=== PATIENT | male | born 1960 | race Caucasian/White ===

== ENCOUNTER 2023-08-09 07:23 | Day surgery (SDC) | payer OTHER, SELFPAY ==
[2023-08-02 12:53] VITALS: BMI 33.2
[2023-08-09] VITALS (15 sets, daily range): BP systolic 96–153; BP diastolic 60–95; PULSE 72–96; RESP 8–17; TEMP 36.5–37.1; O2SAT 91–99; BMI 33.2
--- NOTE | 2023-08-09 06:00 | DI.RAD.S_ITS ---
PROCEDURE: XR KNEE LT 1TO2V INDICATIONS: TKA TECHNIQUE: 2 view(s) of the knee acquired. COMPARISON: [facility], , KNEE 3V RIGHT, 05/31/2016, 12:17. FINDINGS: Bones: Patient is status post knee joint arthroplasty. Hardware components are in expected positions. Visualized bony structures are intact. Soft tissues: Overlying postoperative changes are noted. IMPRESSION: Expected post-operative appearance of a knee arthroplasty. Approved by: Polina Saxena M.D.,Ph.D. on 08/09/2023 at 12:13
[2023-08-09] MEDS: LACTATED RINGERS 1,000 ML 42 ML IV ×2 (08:01→10:03)
[2023-08-09] MEDS: CELECOXIB 200 MG CAPSULE 400 MG PO (08:02)
[2023-08-09] MEDS: ACETAMINOPHEN 325 MG TABLET 975 MG PO (08:03)
--- NOTE | 2023-08-09 08:09 | PM.PREOP ---
Pre-operative Note Interval Note History & Physical reviewed/Exam performed by Physician: Yes Changes to H&P: No
[2023-08-09] MEDS: CEFAZOLIN 2 GM/100 ML PREMIX 100 ML IV (09:11)
[2023-08-09] MEDS: TRANEXAMIC ACID 1,000 MG VIAL 1000 MG INJ ×2 (09:11→11:13)
--- NOTE | 2023-08-09 09:36 | SUR.OPER ---
Supine on padded OR bed. Pillow under head, arms secured on padded armboards <90 degree abduction. Safety belt across torso. Non-operative leg secured with tape over blanket over lower leg. Operative leg secured in DeMayo/John/Nathe positioner. Foam padded brace at thigh of operative leg.
[2023-08-09] MEDS: BUPIVACAINE 0.25% (PF) 60 ML, EPINEPHrine 0.3 MG INJ (09:55)
[2023-08-09] MEDS: BUPIVACAINE LIPOSOME 266 MG/20 ML VIAL INJ (09:59)
--- NOTE | 2023-08-09 11:38 | PM.OP.1 ---
Operative Date/Time/Diagnoses Date of procedure: 08/09/23 Time of procedure: 11:38 Pre-op diagnosis: Knee arthritis left M17.12 Post-op diagnosis: same Procedure & Clinicians Procedure: Total knee replacement left CPT code 89668 Robotic total knee replacement S2 [id number] Computer-assisted navigation CPT code 18208 Same procedure as scheduled: Yes Indications: The patient has significant pain associated with osteoarthritis of the left knee. It is associated with morning stiffness. Pain interferes with daily normal function including ambulation standing and any activities that are weight-bearing. It interferes with sleep. There is crepitation with range of motion. There is marked joint line tenderness. X-rays show significant levels of osteoarthritis. Double attempted previous conservative treatment has been rendered. The patient has failed exercise program, medications and previous injections. Patient is indicated for total knee arthroplasty. The risks and benefits of the procedure have been discussed with the patient and given the opportunity to ask questions. The risks of surgery include but are not limited to infection, malunion, nonunion, persistence of pain, damage to nerves and blood vessels, posttraumatic arthritis, DVT, PE, cardiopulmonary complications and . The patient expressed a thorough understanding of the risks and benefits of surgery and has elected to proceed. Consent was signed. During the operation, the services of a physician assistant professor surgical technology were medically indicated and necessary to provide the exposure of the operative site for the surgical procedure and to maintain the limb in a proper position to carry out the operation safely and efficiently. Without a qualified assistant sales center manager being present this would extended the operative procedure and made the procedure technically more difficult to perform. Surgeon: Jennyfer Worthington Supervisor [facility]: Molly Pradhan Anesthesia Type: Spinal, Peripheral nerve block and Local Operative Notes Findings: Tricompartmental knee arthritis varus pattern. Suicide. Full-thickness cartilage loss. Closure Type: primary Specimen(s): none sent Prosthetic devices, grafts, tissues, transplants, or devices: Gage and Nephew journey 2 BCS Femur Oxinium size 8 left Tibia left size 7 Poly 9 mm Patella 38 x 9 mm round Estimated Blood Loss (mL): 50 Blood products transfused: none Tourniquet time (min): 109 Procedure in detail: Patient was seen in the preoperative area where the patient and site of surgery were identified in the operative knee was marked informed consent confirmed. This was the left knee. Patient received the appropriate preoperative antibiotics this was 2 g of Ancef. And other preoperative medications and was taken to the operating room placed on operating table in the supine position. Spinal anesthetic were administered. The operative extremity was then prepped and draped in the standard sterile fashion with a nonsterile tourniquet high on the thigh. Patient was placed on the green foam bolsters. A lateral post was placed at the level of the proximal thigh /trochanter area as a lateral post. Formal time-out procedure was performed confirming the patient's side and site of surgery and administration of appropriate preoperative antibiotics and implants were in the room accounted for. All were in agreement. Patient received a preoperative dose of tranexamic acid and then a 2nd dose at tourniquet release Patient was prepped and draped in the standard sterile fashion and the foot was placed into the leg finney. This was taken into high flexion and the incision was marked out over the anterior knee to the level of the medial tubercle tubercle. The Esmarch was then used for exsanguination and the tourniquet was inflated to 250 mmHg. Was made through the skin and subcutaneous tissue in high flexion this was then brought down into 30? of flexion for the medial parapatellar arthrotomy. A marker pen was used to cristiane the arthrotomy site for later repair. Joint fluid was evacuated. The anterior osteophytes and soft tissues were removed. Routine medial release was initially made along the medial proximal tibia with Bovie. The patella was 1st cut using the saw sized and prepped and then subluxed throughout the case and protected. The leg was then taken into extension and the patella was everted and the patella was cut to accommodate the patellar button. This was sized to a 38 mm button for a 9 mm thickness to recreate the original dimensions of the patella. Overhanging lateral patella was removed with a facetectomy. Poly was removed and the protector replaced and the patella was subluxed and the knee was taken back up into flexion and attention was returned to the femur. Then the rotational landmarks of Whitesides line and the trans epicondylar axis were marked on the femur with electrocautery. ACL and PCL were released. Then the Cori robotic pins were placed into the femur and tibia and the race set up. Landmarks were established and the robotic planning was commenced. Plan was developed and improved and adjusted as necessary to create a balanced knee. Robotic planning assisted in alignment. Initial alignment was 5? of varus. Planned for 3? varus alignment. Achieved 2? of varus alignment. External rotation of the femur 6?. For balance knee 1-2 mm in flexion and extension. Once the plan was satisfactory the bur was used to remove the distal femur . Attention was then turned to the tibia and the tibial resection was made in accordance with the robotic planning. Then attention was returned to the femur and the 5 in 1 cutting block placed and checked with the alignment using the robotic assisted guidance. This was then secured and the cuts were made. The trials were placed. And the femoral notch was cut a standard fashion using Reamer then slap hammer. The knee was trialed and the checked. Knee was balanced in flexion extension. Range of motion 0-135 degrees was obtained. Excellent stability with a 9 mm poly. The rotation femoral trial was marked Bovie on the bone and checked with a long malika. The tibia was then finished with a drill and flange cut and then The trial implants were removed. Then in extension the posterior capsule was injected with a mixture of 40 mL of 0.25% Marcaine and 20 mL 266 mg of Exparel care to avoid excessive injection posterior laterally. The remainder of this was saved for the capsule and subcutaneous tissue and placed during cement curing. The wound and bone was irrigated with pulsatile lavage. This was then dried with a sponge. The components were verified and opened and the cement was mixed. Cement was applied to the components and then to the bone then the tibia was cemented in place 1st followed by the femur then the patella. Excess cement was removed. With care looking around the back of the knee. Remainder of the injection was injected around the capsule. trial poly was placed back in the leg was placed into extension for the patellar cementing. After this was cured approximately 15 minutes later and the dilute Betadine solution was placed for at least 3 minutes in the wound this was then irrigated out and the final poly was placed. This was a 9 mm poly. Full range of motion. Excellent patellar tracking. The tourniquet was released hemostasis was achieved. Final 1g of tranexamic acid was given IV at the time of tourniquet release. The capsule was closed with 1. Ethibond suture. Followed by a running Quill stitch. Subcutaneous layer was closed with 3-0 Vicryl suture. Skin was closed with a running V lock suture Stratafix Monocryl type suture and Dermabond. An pravin dressing was placed . An Gelacio wrap was applied. Anesthetic was terminated the patient was woken from anesthesia and taken to recovery room in good condition. There no immediate complications from this procedure. The patient will be maintained on a standard total knee replacement protocol with weight-bearing as tolerated. Complications: none Post-operative Condition: stable Disposition: PACU Plan for aftercare: Routine postoperative total knee care. Weightbear as tolerated with assistive devices. Immediate range of motion. May shower with Aquacel dressing. Aspirin 81 mg b.i.d. x6 weeks for DVT prophylaxis. Follow up in Orthopedic Clinic in 2 weeks.
[2023-08-09] MEDS: KETOROLAC 30 MG/ML VIAL 15 MG IV (12:05)
[2023-08-09] MEDS: HYDROCODONE/ACET 5/325 TABLET 1 TAB PO ×2 (12:51→15:15)
--- NOTE | 2023-08-09 13:42 | PT.IIE ---
Current Diagnoses Unilateral primary osteoarthritis, left knee (08/09/23) Surgery Performed Operation Date: 08/09/23 08:45 Actual Procedures p Total Knee Arthroplasty - Robot(Left) - Jennyfer Worthington MD Surgical History (Last Updated 08/02/23 @ 13:15 by Keely Veliz, RN) Hx of hernia repair Hx of laminectomy Medical History (Last Updated 08/02/23 @ 13:15 by Keely Veliz, RN) Arthritis First degree AV block H/O ETOH abuse Heart murmur HTN (hypertension) Pre-diabetes Physical Therapy Inpatient Evaluation/Re-Eval M1 PT/OT-IP Prior Functional Status Start: 08/09/23 17:03 Freq: NEEDED Status: Active Protocol: Document 08/09/23 13:42 AB (Rec: 08/09/23 17:19 AB [id number]) Medical Review Prior Functional Status Medical History Reviewed Yes Communication able to make needs known Mobility and Gait pt stated that he was independent with all mobilities and ambulation without AD Social History Household Members children,none Living Arrangements House Number of Floors (Floors) One Floor Number of Stairs To Enter/Railing? 1 step to enter the house Home Environment Standard Height Toilet,Tub/ Shower Home Equipment Front Wheel Walker,Hand Held Shower Additional Social History Comment pt's daughter will be staying with pt to assist as long as needed M2 PT-IP Current Condition Start: 08/09/23 17:03 Freq: NEEDED Status: Active Protocol: Document 08/09/23 13:42 AB (Rec: 08/09/23 17:19 AB [id number]) Physical Therapy Current Condition Current Condition Evaluation Date 08/09/23 Treatment Diagnosis s/p L TKA; difficulty in walking Onset Date 08/09/23 M3 PT-IP Subjective Start: 08/09/23 17:03 Freq: NEEDED Status: Active Protocol: Document 08/09/23 13:42 AB (Rec: 08/09/23 17:19 AB [id number]) Subjective Physical Therapy Visit Type Type Initial Evaluation Visit Start Time 13:42 Visit Stop Time 15:00 Number of CORPORATE SECURITY MANAGER Visits 0 Physical Therapy Visit Comments Patient Comments agreeable to do PT Therapy Pain Assessment Pain When Pain Assessed At Rest Pain Present Pain Present Pain Reported Location right knee Intensity 2 Scale Used Numeric (0 - 10) Pain Management Techniques Distraction,Modification of Treatment,Re-positioning, Timing of Activity with Medications M4 PT-IP Mobility and Gait Start: 08/09/23 17:03 Freq: NEEDED Status: Active Protocol: Document 08/09/23 13:42 AB (Rec: 08/09/23 17:19 AB [id number]) PT-Bed Mobility Assessment Supine to Sit Supine to Sit Standby Assistance PT-Transfer Assessment Sit to and From Stand Sit to and from Stand Standby Assistance,Contact Guard Assistance,1 Person Assistance,Use of Upper Extremities Equipment Transfer Assistive Device Gait Belt,Front Wheeled Walker Orthotic/Prosthetic Devices or Brace: No Comments Mobility Comments pt in PACU and plans to go home today. pt supine in bed bed agreeable to do PT. obtained PLOF and home set up from pt. post-op folder provided and reviewed contents . educated pt regarding HEP. pt's daughter not available for caregiver training per nurse. BP ins upine: 111/64. pt completed supine to sit SBA. able to sit on EOB SBA. BP in sittin/73. pt completed sit to stand CGA and max cues for techniques and safety. pt ambulated ~ 40 ft using FWW CGA. pt sat on EOB. BP checked: 120/68. stair climbing training. educated pt on how to do stairs. pt completed up/down step stool using FWW x 2 reps CGA and cues. pt ambulated back to EOB using FWW SBA ~ 15 ft. educated pt on how to use safety belt and to inform his daughter on how to assist him since pt's izabele is not available for caregiver training. pt understood. pt completed sit to supine SBA . postiioned on the bed. Left pt with nurse. Gait Assessment Gait Gait Assistance Required: Standby Assistance,Contact Guard Assist Distance (Feet) 40 Able to Maintain Weight Bearing Status Yes During Gait Assistive Devices Assistive Device Gait Belt,Front Wheeled Walker Orthotic/Prosthetic Devices or Brace: No Gait Deviations General Gait Pattern Decreased Stride Length, Decreased Feet Clearance,Step- to Gait Factors Limiting Gait Function Factors Limiting Gait Function Decreased Activity Tolerance, Decreased Strength,Difficulty Following Directions,Limited Range of Motion,Pain,Poor Balance,Poor Safety Awareness Stair Climbing Assessment Evaluation Level of Assist On Stairs Contact Guard Assistance Devices Stair Climbing Assistive Devices Front Wheel Walker Technique/Endurance Stair Climbing Direction Ascend and Descend Stair Climbing Technique Step to Step Number of Steps Climbed 1 Query Text: Stair Climbing Set # Repetitions (reps) 2 PT-Balance Assessment Sitting Balance and Reactions Static Sitting Balance Ability Normal Dynamic Sitting Balance Ability Good Standing Balance and Reactions Static Standing Balance Ability Fair Dynamic Standing Balance Ability Fair Device Used FWW M5 PT-IP Objective Assessments Start: 08/09/23 17:03 Freq: NEEDED Status: Active Protocol: Document 08/09/23 13:42 AB (Rec: 08/09/23 17:19 AB [id number]) Orientation Orientation/Cognition Level of Alertness Alert Orientation Name,Place,Situation Language Function Ability No Deficits Noted Safety Awareness Understands Safety Issues Memory Description No Deficits Noted Gross Range of Motion Lower Extremity ROM Assessment Left Impaired Impairments L knee flexion: ~ 70 deg L knee extension: ~ 10 deg less to 0 Strength Lower Extremity Strength Assessment Left Impaired Hip 4-/5 Knee 3+/5 Coordination Assessment Gross Coordination Gross Coordination WNL Sensation Assessment Sensation Gross Sensation WNL Muscle Tone Muscle Tone WNL Yes M6 PT-IP Treatment Start: 08/09/23 17:03 Freq: NEEDED Status: Active Protocol: Document 08/09/23 13:42 AB (Rec: 08/09/23 17:19 AB [id number]) Physical Therapy Treatment Education Education Provided Precautions,Weight Bearing Status,Post-Op Packet,Safety M7 PT-IP Assessment and Plan Start: 08/09/23 17:03 Freq: NEEDED Status: Active Protocol: Document 08/09/23 13:42 AB (Rec: 08/09/23 17:19 AB [id number]) PT Summary Assessment and Plan Potential Rehabilitation Potential Fair Status of Condition at Evaluation Stable Summary Impairments Pain,ROM,Strength,Balance, Coordination,Sensation,Tone, Cognition,Bed Mobility, Transfers,Gait,Activity Tolerance Assessment Summary pt is a 62 y/o M s/p L TKA POD 0. pt requiring SBA to CGA with mobility using FWW and plans to go home with his daughter to assist him at home . daughter was not available for caregiver training. pt has out pt PT setup. Goals Bed Mobility Goal Independent Transfer Goal Independent,Front Wheeled Walker Gait Goal Independent,Front Wheel Walker Gait Distance 200 Other Goals up/down 1 step using FWW mod I Days to Meet Goals 5 Frequency of Treatment Frequency Of Treatment Twice a Day Treatment Plan Physical Therapy Treatment Plan Bed Mobility Training,Transfer Training,Gait Training, Therapeutic Exercise,Balance Retraining,Post Op Education, Discharge Planning,Hot or Cold Pack,Neuromuscular Re-ed, Coordination Retraining,Manual Therapy Weight Bearing Status Weight Bearing Status Weight Bear as Tolerated Allowed Weight Bearing Amount (enter % LLE WBAT or #) (%) Recommendations To Nursing Amount of Assist Needed 1 Person Assist Discharge Recommendations PT Discharge Recommendations Home with Assistance, Outpatient PT Transportation Needs at Discharge Private Vehicle
--- NOTE | 2023-08-09 15:05 | SUR.PHASEII ---
Patient evaluated and released by PT. Patient expressed desire to discharge, ride notified.
== END 2023-08-09 16:01 | disposition home or self-care (01) ==
PROVIDERS: Family Provider Family Medicine; Referring Provider Orthopaedic Surgery Foot and Ankle Surgery; Visit Provider Orthopaedic Surgery Foot and Ankle Surgery
PROC: 0SRD0JZ Replacement of Left Knee Joint with Synthetic Substitute, Open Approach (ICD-10-PCS; CPT 27447; principal; 2023-08-09 08:45)
DX: M17.12 Unilateral primary osteoarthritis, left knee (principal); G89.18 Other acute postprocedural pain; M21.162 Varus deformity, not elsewhere classified, left knee; M25.762 Osteophyte, left knee
CPT/HCPCS: 27447; 20985; 64450; 73560; 97116; 97161; 97530; C1776; C9290; J0171; J0690; J1100; J1170; J1885; J2250; J2405; J2704; J3010

== ENCOUNTER 2023-11-22 09:44 | Day surgery (SDC) | payer OTHER, SELFPAY ==
[2023-11-20 15:16] VITALS: BMI 34.2
--- NOTE | 2023-11-22 06:00 | DI.RAD.S_ITS ---
PROCEDURE: XR KNEE RT 1TO2V INDICATIONS: tka TECHNIQUE: 2 view(s) of the knee acquired. COMPARISON: [facility], CR, XR KNEE LT 1TO2V, 08/09/2023, 11:41. FINDINGS: Bones: Patient is status post knee joint arthroplasty. Hardware components are in expected positions. Visualized bony structures are intact. Soft tissues: Overlying postoperative changes are noted. IMPRESSION: Expected post-operative appearance of a knee arthroplasty. Dictated by: Dong Arredondo M.D. on 11/22/2023 at 15:58 Approved by: Dong Arredondo M.D. on 11/22/2023 at 15:58
[2023-11-22 10:08] VITALS: BMI 33.0
[2023-11-22 10:28] VITALS: BP 131/100; PULSE 80; RESP 18; TEMP 36.7; O2SAT 99
[2023-11-22] MEDS: ACETAMINOPHEN 325 MG TABLET 975 MG PO (10:33)
[2023-11-22] MEDS: CELECOXIB 200 MG CAPSULE 400 MG PO (10:33)
[2023-11-22] MEDS: LACTATED RINGERS 1,000 ML 42 ML IV (10:34)
[2023-11-22 10:52] LABS: Hematocrit 41.9 % (41-53); Hemoglobin 14.5 g/dL (13.5-17.5); Mean Corpuscular HGB Conc 34.7 % (30-36); Mean Corpuscular Hemoglobin 30.1 PG (26-34); Mean Corpuscular Volume 86.8 fL (80-100); Platelet Count 222 X10^3/uL (150-400); Red Blood Cell Count 4.83 X10^6/uL (4.5-5.9); Red Cell Distribution Width 15.1 % (11.6-14.8); White Blood Cell Count 6.5 X10^3/uL (4.5-11.0)
[2023-11-22 11:05] LABS: BUN Creatinine Ratio 27.5 (6-22); Blood Urea Nitrogen 19 mg/dL (9-20); Calcium 9.3 mg/dL (8.4-10.2); Carbon Dioxide 26 mmol/L (22-32); Chloride 106 mmol/L (98-107); Estimated Glomerular Filt Rate > 60 mL/min (>60); Glucose 116 mg/dL (80-110); HEMOLYSIS < 15 (0-50); Potassium 4.1 mmol/L (3.4-5.1); Sodium 138 mmol/L (137-145)
--- NOTE | 2023-11-22 11:24 | PM.PREOP ---
Pre-operative Note Interval Note History & Physical reviewed/Exam performed by Physician: Yes Changes to H&P: No
[2023-11-22] MEDS: CEFAZOLIN VIAL 3 GM in SODIUM CHLORIDE 0.9% 100 ML IV (11:32)
--- NOTE | 2023-11-22 11:32 | P.OP_ITS ---
Operative Date/Time/Diagnoses Date of procedure: 11/22/23 Time of procedure: 12:00 Pre-op diagnosis: Right knee arthritis Post-op diagnosis: same Procedure & Clinicians Procedure: Total knee replacement right CPT code 83056 Robotic surgery CPT code s2900 cpt [id number] Same procedure as scheduled: Yes Indications: The patient has significant pain associated with osteoarthritis of the right knee. It is associated with morning stiffness. Pain interferes with daily normal function including ambulation standing and any activities that are weig ht-bearing. It interferes with sleep. There is crepitation with range of motion. There is marked joint line tenderness. X-rays show significant levels of osteoarthritis. Double attempted previous conservative treatment has been rendered. The patient has failed exercise program, medications and previous injections. Patient is indicated for total knee arthroplasty. The risks and benefits of the procedure have been discussed with the patient and given the opportunity to ask questions. The risks of surgery include but are not limited to infection, malunion, nonunion, persistence of pain, damage to nerves and blood vessels, posttraumatic arthritis, DVT, PE, cardiopulmonary complications and . The patient expressed a thorough understanding of the risks and benefits of surgery and has elected to proceed. Consent was signed. During the operation, the services of a physician surgical processor were medically indicated and necessary to provide the exposure of the operative site for the surgical procedure and to maintain the limb in a proper position to carry out the operation safely and efficiently. Without a qualified assistant professor of nursing being present this would extended the operative procedure and made the procedure technically more difficult to perform. Surgeon: Jennyfer Worthington Emergency Vehicle Technician: Radha Miranda Anesthesia Type: General, Peripheral nerve block and Local Operative Notes Findings: End-stage knee arthritis right, varus Closure Type: primary Specimen(s): none sent Prosthetic devices, grafts, tissues, transplants, or devices: Gage and nephew journey BCS2 Femur Oxinium 9 Tibia 8 Poly 9 Patella 38x9 Estimated Blood Loss (mL): 50 Blood products transfused: none Tourniquet time (min): 109 Procedure in detail: Patient was seen in the preoperative area where the patient and site of surgery were identified in the operative knee was marked informed consent confirmed. This was the right knee. Patient received the appropriate preoperative antibiotics this was 3 g of Ancef. And other preoperative medications and was taken to the operating room placed on operating table in the supine position. Spinal anesthetic were administered. The operative extremity was then prepped and draped in the standard sterile fashion with a nonsterile tourniquet high on the thigh. Patient was placed on the green foam bolsters. A lateral post was placed at the level of the proximal thigh /trochanter area as a lateral post. Formal time-out procedure was performed confirming the patient's side and site of surgery and administration of appropriate preoperative antibiotics and implants were in the room accounted for. All were in agreement. Patient received a preoperative dose of tranexamic acid and then a 2nd dose at tourniquet release Patient was prepped and draped in the standard sterile fashion and the foot was placed into the leg finney. This was taken into high flexion and the incision was marked out over the anterior knee to the level of the medial tubercle tubercle. The Esmarch was then used for exsanguination and the tourniquet was inflated to 250 mmHg. Was made through the skin and subcutaneous tissue in high flexion this was then brought down into 30? of flexion for the medial parapatel lar arthrotomy. A marker pen was used to cristiane the arthrotomy site for later repair. Joint fluid was evacuated. The anterior osteophytes and soft tissues were removed. Routine medial release was initially made along the medial proximal tibia with Bovie. The patella was 1st cut using the saw sized and prepped and then subluxed throughout the case and protected. The leg was then taken into extension and the patella was everted and the patella was cut to accommodate the patellar button. This was sized to a 38 mm button for 9mm thickness to recreate the original dimensions of the patella. P heena was removed and the protector replaced and the patella was subluxed and the knee was taken back up into flexion and attention was returned to the femur. Then the rotational landmarks of Whitesides line and the trans epicondylar axis were marked on the femur with electrocautery. ACL and PCL were released. Then the Cori robotic pins were placed into the femur and tibia and the race set up. Landmarks were established and the robotic planning was commenced. Plan was developed and improved and adjusted as necessary to create a balanced knee. Preoperative alignment was 5? of varus this was corrected to planned postoperative alignment of 1 degree of varus achieved. We used 5? of external rotation the distal femur in 3? of flexion. And balance 1-2 mm of laxity in flexion and extension was achieved. Plan was satisfactory the bur was used to remove the distal femur then the 5 in 1 cutting block was applied complete the femur cuts. Attention was then turned to the tibia and the tibial resection was made in accordance with the robotic planning. The trials were placed. And the femoral notch was cut a standard fashion using Reamer then slap hammer. The knee was trialed and the checked. Knee was balanced in flexion extension. Range of motion 0-135 degrees was obtained. The rotation femoral trial was marked Bovie on the bone and checked with a long malika. The tibia was then finished with a drill and flange cut and then The trial implants were removed. Then in extension the posterior capsule was injected with a mixture of 40 mL of 0.25% Marcaine and 20 mL of Exparel care to avoid excessive injection posterior laterally. The remainder of this was saved for the capsule and subcutaneous tissue and placed during cement curing. The wound and bone was irrigated with pulsatile lavage. This was then dried with a sponge. The components were verified and opened and the cement was mixed. Cement was applied to the components and then to the bone then the tibia was cemented in place 1st followed by the femur then the patella. Excess cement was removed. With care looking around the back of the knee. Remainder of the injection was injected around the capsule. trial poly was placed back in the leg was placed into extension for the patellar cementing. After this was cured approximately 15 minutes later and the dilute Betadine solution was placed for at least 3 minutes in the wound this was then irrigated out and the final poly was placed. This was a 9 mm poly. The tourniquet was released hemostasis was achieved. Final 1g of tranexamic acid was given IV at the time of tourniquet release. The capsule was closed with 1. Ethibond suture. Followed by a running Quill stitch. Subcutaneous layer was closed with 3-0 Vicryl suture. Skin was closed with a running V lock suture Stratafix Monocryl type suture and Dermabond. An Aquacel dressing was placed . An Gelacio wrap was applied. Anesthetic was terminated the patient was woken from anesthesia and taken to recovery room in good condition. There no immediate complications from this procedure. The patient will be maintained on a standard total knee replacement protocol with weight-bearing as tolerated. Complications: none Post-operative Condition: stable Disposition: PACU Plan for aftercare: Standard total knee arthroplasty postoperative instructions. 81 mg aspirin b.i.d. for DVT prophylaxis x6 weeks. Follow up in Orthopedic Clinic in 2 weeks. Start physical therapy. Weightbear as tolerated.
[2023-11-22] MEDS: TRANEXAMIC ACID 1,000 MG VIAL 2000 MG INJ ×2 (12:16→14:21)
--- NOTE | 2023-11-22 12:31 | SUR.OPER ---
Supine on padded OR bed. Pillow under head, arms secured on padded armboards <90 degree abduction. Safety belt across torso. Non-operative leg secured with tape over blanket over lower leg. Operative leg secured in John positioner. Foam padded brace at thigh of operative leg.
[2023-11-22] MEDS: BUPIVACAINE 0.25% (PF) 60 ML, EPINEPHrine 0.3 MG INJ (12:38)
[2023-11-22] MEDS: BUPIVACAINE LIPOSOME 266 MG/20 ML VIAL INJ (14:06)
[2023-11-22 15:02] VITALS: BP 130/82; PULSE 85; RESP 12; TEMP 36.4; O2SAT 97
[2023-11-22 15:07] VITALS: BP 135/71; PULSE 90; RESP 13; O2SAT 99
[2023-11-22 15:12] VITALS: BP 132/79; PULSE 89; RESP 15; TEMP 36.4; O2SAT 95
[2023-11-22 15:17] VITALS: BP 122/76; PULSE 83; RESP 12; O2SAT 95
[2023-11-22 15:25] VITALS: BP 124/75; PULSE 82; RESP 14; O2SAT 100
[2023-11-22] MEDS: HYDROCODONE/ACET 5/325 TABLET 1 TAB PO (15:25)
[2023-11-22] MEDS: hydrOXYzine 50 MG/ML INJ 25 MG IM (16:26)
[2023-11-22] MEDS: ONDANSETRON 4 MG/2 ML INJ IV (16:27)
== END 2023-11-22 16:55 | disposition home or self-care (01) ==
PROVIDERS: Anesthesiology; Family Provider Family Medicine; Referring Provider Orthopaedic Surgery Foot and Ankle Surgery; Visit Provider Orthopaedic Surgery Foot and Ankle Surgery
PROC: 0SRC0JZ Replacement of Right Knee Joint with Synthetic Substitute, Open Approach (ICD-10-PCS; CPT 27447; principal; 2023-11-22 11:45)
DX: M17.11 Unilateral primary osteoarthritis, right knee (principal); I10 Essential (primary) hypertension; G47.30 Sleep apnea, unspecified; R73.03 Prediabetes; Z96.652 Presence of left artificial knee joint
CPT/HCPCS: 27447; 73560; 80048; 82962; 85027; C1776; C9290; J0171; J0690; J1100; J1171; J2250; J2405; J2704; J3010; J3410